=== PATIENT | female | born 1995 | race Caucasian/White ===

== ENCOUNTER 2019-08-04 13:03 | Emergency (ER) | payer OTHER ==
[~2019-08-04] VITALS: Ht 152.4 cm; Wt 65.8 kg
[2019-08-04] MEDS ORDERED: DULOXETINE HCL20 MG PO (13:21)
[2019-08-04 13:55] LABS: ABSOLUTE EOSINOPHILS 0.2 thou/uL (0.0-0.7); ABSOLUTE LYMPHOCYTES 1.7 thou/uL (0.8-5.3); ABSOLUTE MONOCYTES 0.4 thou/uL (0.0-1.2); ABSOLUTE NEUTROPHILS 2.6 thou/uL (1.6-8.1); BASOPHILS 0.5 %; EOSINOPHILS 3.2 %; HEMATOCRIT 35.8 % (37.0-47.0); HEMOGLOBIN 12.6 gm/dL (12.0-15.0); LYMPHOCYTES 34.8 %; MCH 33.2 pg (26.0-34.0); MCHC 35.2 g/dL (28.0-37.0); MCV 94.2 fL (80.0-100.0); MONOCYTES 8.8 %; MPV 7.6 fl. (7.2-11.1); NUCLEATED RBCS 0 /100WBC; PLATELET COUNT* 238 thou/uL (150-400); POLYS 52.7 %; WBC 4.9 thou/uL (4.0-11.0)
[2019-08-04 14:27] LABS: CALCIUM 9.2 mg/dL (8.5-10.1); CREATININE 0.7 mg/dL (0.6-1.3); POTASSIUM 3.5 mmol/L (3.5-5.1)
[2019-08-04 14:32] LABS: ALBUMIN 3.4 g/dL (3.4-5.0); TOTAL BILIRUBIN 0.2 mg/dL (<0.1-1.0); TOTAL PROTEIN 7.3 g/dL (6.4-8.2)
[2019-08-04] MEDS ORDERED: ZOFRAN4 MG PO (15:29)
[2019-08-04 15:38] VITALS: BP 135/93
--- NOTE | 2019-08-04 16:17 | EKG ---
[place] [address] ELECTROCARDIOGRAM REPORT Name: BEATRIZ CAMPA [id number] Admission: 08/04/19 Attend Phys: Discharge: 08/04/19 Date of : [birth year] Report #: [id number] THIS REPORT FOR: //name// [facility] ED Test Date: 2019-08-04 Test Time: 13:39:37 Pat Name: BEATRIZ CAMPA Department: Room: Gender: F Video Specialist: : 1995 Requested By: Kaushik Ramachandran Order Number: [id number] MD: Олег Corrigan Measurements Intervals [place] Rate: 80 P: 40 [place]: 136 QRS: 55 QRSD: 84 T: 36 QT: 356 QTc: 411 Interpretive Statements Sinus rhythm No previous ECG available for comparison Electronically Signed On 08-04-2019 16:16:54 CDT by Олег Corrigan [email or web address] <ELECTRONICALLY SIGNED> By: Олег Corrigan MD, [facility] 08/04/19 1616 [id number] Олег Corrigan MD, FACC /EPI
== END 2019-08-04 15:39 | disposition home or self-care (01) ==
LOC: M.ERS 13:03
PROVIDERS: Emergency Medicine
DX: K80.20 Calculus of gallbladder without cholecystitis without obstruction (principal); F41.9 Anxiety disorder, unspecified

== ENCOUNTER 2019-08-15 20:55 | Emergency (ER) | payer OTHER ==
[~2019-08-15] VITALS: Ht 152.4 cm; Wt 65.8 kg
[~2019-08-15 20:55] MED LIST: DULOXETINE HCL20 MG PO; ZOFRAN4 MG PO
[2019-08-15] MEDS ORDERED: BIRTH CONTROL (21:15)
[2019-08-15 22:10] LABS: ABSOLUTE EOSINOPHILS 0.1 thou/uL (0.0-0.7); ABSOLUTE MONOCYTES 0.5 thou/uL (0.0-1.2); BASOPHILS 0.1 %; EOSINOPHILS 0.8 %; HEMATOCRIT 40.2 % (37.0-47.0); HEMOGLOBIN 14.1 gm/dL (12.0-15.0); LYMPHOCYTES 17.1 %; MCHC 35.2 g/dL (28.0-37.0); MCV 93.8 fL (80.0-100.0); MONOCYTES 4.2 %; MPV 7.9 fl. (7.2-11.1); NUCLEATED RBCS 0 /100WBC; PLATELET COUNT* 286 thou/uL (150-400); POLYS 77.8 %; RBC 4.28 mil/uL (4.20-5.00); RDW-CV 12.3 % (10.5-14.5); WBC 11.6 thou/uL (4.0-11.0)
[2019-08-15 22:19] LABS: CALCIUM 9.6 mg/dL (8.5-10.1); CREATININE 0.7 mg/dL (0.6-1.3)
[2019-08-15 22:23] LABS: ALBUMIN 3.6 g/dL (3.4-5.0); TOTAL BILIRUBIN 0.4 mg/dL (<0.1-1.0); TOTAL PROTEIN 7.8 g/dL (6.4-8.2)
[2019-08-15] MEDS ORDERED: NORCO 5-325 TA1 EAC1 PO (23:50)
[2019-08-15] MEDS ORDERED: IBUPROFEN 600600 M1 PO (23:50)
[2019-08-15] MEDS ORDERED: ONDANSETRON HCL4 M2 PO (23:50)
[2019-08-16 00:38] VITALS: BP 118/77
== END 2019-08-16 00:39 | disposition home or self-care (01) ==
LOC: M.ERS 20:55
PROVIDERS: Nurse Practitioner Family
DX: K80.20 Calculus of gallbladder without cholecystitis without obstruction (principal); F41.9 Anxiety disorder, unspecified; Z90.89 Acquired absence of other organs; Z88.1 Allergy status to other antibiotic agents